=== PATIENT | male | born 1975 | race Caucasian/White ===

== ENCOUNTER 2016-10-02 19:09 | Emergency (ER) | payer MEDICAID ==
[~2016-10-02] VITALS: Ht 170.2 cm; Wt 76.0 kg
[2016-10-02 19:17] VITALS: Ht 170.2 cm; Wt 76.0 kg
[2016-10-02] MEDS ORDERED: SITA1TAB5 PO (21:31)
[2016-10-02] MEDS ORDERED: ASPI-664 PO (21:31)
[2016-10-02] MEDS ORDERED: SOD CHLORIDE 0.9% 500 ML IV STA (21:36)
[2016-10-02 22:08] LABS: ADD SCAN DIFF NO
--- NOTE | 2016-10-02 22:08 | RADRPT ---
PROCEDURE: XR Chest AP portable CLINICAL INDICATION: Hyperglycemia TECHNIQUE: An AP portable radiograph of the chest was submitted. COMPARISON: None. FINDINGS: Support Hardware: None Cardiovascular: The cardiovascular silhouette appears unremarkable. Lung Bae: A 4 mm nodule projects to the right upper lung zone. The lung bae are otherwise carolann ar. Pleural Spaces: No pneumothorax or pleural effusion is identified. Osseous Structures: Mild diffuse degenerative spine changes are noted. Soft Tissues: The soft tissues appear generous. IMPRESSION: 1. A 4 mm nodule projects to the right upper lobe. As this is upper lobe location, a 812-month fol low-up PA chest is recommended if previous chest films going back at least to years cannot be obtain ed. 2. Mild degenerative spine changes. Physician Tracy Date Time Electronically viewed and signed by Physician Tracy on 10/02/2016 22:08 /
[2016-10-02 22:13] LABS: BASOPHILS % 0.6 % (0.0-2.0); EOSINOPHILS # 0.1 10^3/ul (0.0-0.5); EOSINOPHILS % 1.5 % (0.0-7.0); HEMATOCRIT 42.6 % (42.0-52.0); HEMOGLOBIN 15.5 g/dl (14.0-18.0); LYMPHOCYTES # 2.5 10^3/ul (0.8-2.9); MEAN CORPUSCULAR HEMOGLOBIN 30.3 pg (29.0-33.0); MEAN CORPUSCULAR HGB CONC 36.4 g/dl (32.0-37.0); MEAN CORPUSCULAR VOLUME 83.4 fl (82.0-101.0); MEAN PLATELET VOLUME 9.8 fl (7.4-10.4); MONOCYTE # 0.7 10^3/ul (0.3-0.9); MONOCYTES % 10.2 % (0.0-11.0); NEUTROPHIL # 3.5 10^3/ul (1.6-7.5); NEUTROPHILS % 51.4 % (39.0-77.0); PLATELET COUNT 221 10^3/UL (140-415); RED BLOOD COUNT 5.11 10^6/ul (4.70-6.10); RED CELL DISTRIBUTION WIDTH 12.1 % (11.5-14.5); WHITE BLOOD COUNT 6.8 10^3/ul (4.8-10.8)
[2016-10-02 22:22] LABS: ADD UMIC NO; UR ASCORBIC ACID NEGATIVE (NEGATIVE); UR BILIRUBIN (Dip) NEGATIVE (NEGATIVE); UR BLOOD (Dip) NEGATIVE (NEGATIVE); UR CLARITY CLEAR (CLEAR); UR COLOR STRAW (YELLOW); UR GLUCOSE (Dip) 3+ mg/dL (NEGATIVE); UR KETONES (Dip) 2+ mg/dL (NEGATIVE); UR LEUKOCYTE ESTERASE (Dip) NEGATIVE Leu/ul (NEGATIVE); UR NITRITE (Dip) NEGATIVE (NEGATIVE); UR SPECIFIC GRAVITY (Dip) 1.037 (1.003-1.030); UR TOTAL PROTEIN (Dip) NEGATIVE (NEGATIVE); UR UROBILINOGEN (Dip) NEGATIVE (NEGATIVE)
[2016-10-02 22:39] LABS: ALANINE AMINOTRANSFERASE 33 IU/L (13-69); ALBUMIN 4.8 g/dl (3.3-4.9); ALBUMIN/GLOBULIN RATIO 2.08; ALKALINE PHOSPHATASE 95 IU/L (42-121); ANION GAP 15 (8-16); ASPARTATE AMINO TRANSFERASE 19 IU/L (15-46); BILIRUBIN,INDIRECT 0.3 mg/dl (0-1.1); BILIRUBIN,TOTAL 0.3 mg/dl (0.2-1.3); BLOOD UREA NITROGEN 15 mg/dl (7-20); CALCIUM 9.6 mg/dl (8.4-10.2); CARBON DIOXIDE 26 mmol/L (21-31); CHLORIDE 98 mmol/L (97-110); CREATININE 0.87 mg/dl (0.61-1.24); GLUCOSE 361 mg/dl (70-220); POTASSIUM 4.1 mmol/L (3.5-5.1); SODIUM 135 mmol/L (135-144); TOTAL PROTEIN 7.1 g/dl (6.1-8.1)
[2016-10-02 22:50] LABS: TROPONIN-I < 0.012 ng/ml (0.00-0.12)
--- NOTE | 2016-10-03 00:21 | ERD ---
ER Documentation Chief Complaint Date/Time DATE: 10/03/16 TIME: 00:20 Chief Complaint hyperglycdmia, dizziness, blurry vision, [id number] [id number] HPI This a 40-year-old male with known his blood sugars been elevated over the past 4 days. He denies dizziness and blurry vision. No polyuria but no polydipsia polyphagia. No other current complaints. Headache is mild to moderate intensity. Visual acuity as per since return to normal upon arrival to the ER. ROS All systems reviewed and are negative except as per history of present illness. Medications Home Meds Discontinued Reported Medications Aspirin* (Aspirin* EC) 81 Mg Tablet.dr, 81 MG PO DAILY, TAB 10/02/16 Sitagliptin Phos/Metformin HCl (Janumet 50-1,000 mg Tablet) 1 Each Tablet, 1 EACH PO, TAB 10/02/16 Allergies Allergies: Coded Allergies: No Known Allergy (Unverified , 10/02/16) PMhx/Soc History of Surgery: No Anesthesia Reaction: No Hx Neurological Disorder: No Hx Respiratory Disorders: No Hx Cardiac Disorders: No Hx Psychiatric Problems: No Hx Miscellaneous Medical Probl: No Hx Alcohol Use: No Hx Substance Use: No Hx Tobacco Use: No Smoking Status: Never smoker Physical Exam Vitals Vital Signs Date Time Temp Pulse Resp B/P Pulse Ox O2 Delivery O2 Flow Rate FiO2 10/02/16 19:17 97.4 75 20 145/87 99 Physical Exam Const: [] Head: Atraumatic Eyes: Normal Conjunctiva ENT: Normal External Ears, Nose and Mouth. Neck: Full range of motion..~ No meningismus. Resp: Clear to auscultation bilaterally Cardio: Regular rate and rhythm, no murmurs Abd: Soft, non tender, non distended. Normal bowel sounds Skin: No petechiae or rashes Back: No midline or flank tenderness Ext: No cyanosis, or edema Neur: Awake and alert Psych: Normal Mood and Affect Result Diagram: 10/02/16214410/02/162144 Results 24 hrs Laboratory Tests Test 10/02/16 19:16 10/02/16 21:33 10/02/16 21:45 10/02/16 22:01 Bedside Glucose 346mg/dL 355mg/dL White Blood Count 6.810^3/ul Red Blood Count 5.1110^6/ul Hemoglobin 15.5g/dl Hematocrit 42.6% Mean Corpuscular Volume 83.4fl Mean Corpuscular Hemoglobin 30.3pg Mean Corpuscular Hemoglobin Concent 36.4g/dl Red Cell Distribution Width 12.1% Platelet Count 72814^3/UL Mean Platelet Volume 9.8fl Neutrophils % 51.4% Lymphocytes % 36.0% Monocytes % 10.2% Eosinophils % 1.5% Basophils % 0.6% Nucleated Red Blood Cells % 0.0/100WBC Neutrophils # 3.510^3/ul Lymphocytes # 2.510^3/ul Monocytes # 0.710^3/ul Eosinophils # 0.110^3/ul Basophils # 0.010^3/ul Nucleated Red Blood Cells # 0.010^3/ul Sodium Level 135mmol/L Potassium Level 4.1mmol/L Chloride Level 98mmol/L Carbon Dioxide Level 26mmol/L Anion Gap 15 Blood Urea Nitrogen 15mg/dl Creatinine 0.87mg/dl Glucose Level 361mg/dl Lactic Acid Level 1.1mmol/L Calcium Level 9.6mg/dl Total Bilirubin 0.3mg/dl Direct Bilirubin 0.00mg/dl Indirect Bilirubin 0.3mg/dl Aspartate Amino Transf (AST/SGOT) 19IU/L Alanine Aminotransferase (ALT/SGPT) 33IU/L Alkaline Phosphatase 95IU/L Troponin I < 0.012ng/ml Total Protein 7.1g/dl Albumin 4.8g/dl Globulin 2.30g/dl Albumin/Globulin Ratio 2.08 Urine Color STRAW Urine Clarity CLEAR Urine pH 6.0 Urine Specific [place] 1.037 Urine Ketones 2+mg/dL Urine Nitrite NEGATIVEmg/dL Urine Bilirubin NEGATIVEmg/dL Urine Urobilinogen NEGATIVEmg/dL Urine Leukocyte Esterase NEGATIVELeu/ul Urine Hemoglobin NEGATIVEmg/dL Urine Glucose 3+mg/dL Urine Total Protein NEGATIVEmg/dl Test 10/02/16 23:43 Lactic Acid Level 0.8mmol/L Current Medications Medications (Trade) Dose Ordered Sig/Olga Route PRN Reason Start Time Stop Time Status Last Admin Dose Admin Sodium Chloride (NS) 500 ml @ 500 mls/hr Q1H STAT IV 10/02/16 21:36 10/02/16 22:35 DC 10/02/16 21:43 Procedures/MDM EKG: Rate/Rhythm: Normal Sinus Rhythm QRS, ST, T-waves: No changes consistent w/ acute ischemia Impression: No evidence of ischemia or arrhythmia Chest X-ray 1V Interpreted by me: Soft Tissue: No acute abnormalities Bones: No acute abnormalities Mediastinum/Cardiac Silhouette/Lungs: No acute abnormalities Medical decision-makin, hyperglycemia. No evidence DKA. Hydrated here. Feels better. Follow-up with PCP. Return for return of symptoms. Nonfocal neurologically here in the emergency department with serial examinations Departure Diagnosis: Primary Impression: Hyperglycemia Condition: Stable Patient Instructions: Hyperglycemia (High Blood Sugar) KHALIDA MACEDO Oct 03, 2016 00:21
[2016-10-03 00:27] VITALS: BP 138/72; PULSE 62; RESP 20; TEMP 97.4
== END 2016-10-03 00:36 | disposition home or self-care (01) ==
LOC: E/R 19:09
DX: R73.9 Hyperglycemia, unspecified (principal); R42 Dizziness and giddiness; Z79.82 Long term (current) use of aspirin
CPT/HCPCS: 71010; 80053; 81003; 82962; 83605; 84484; 85025; 93005; J7040; 36415

== ENCOUNTER 2016-12-11 08:31 | Emergency (ER) | payer SELFPAY ==
[~2016-12-11] VITALS: Ht 157.5 cm; Wt 73.0 kg
[2016-12-11 08:34] VITALS: Ht 157.5 cm; Wt 73.0 kg
[2016-12-11 09:24] LABS: ADD UMIC YES; UR ASCORBIC ACID NEGATIVE (NEGATIVE); UR BILIRUBIN (Dip) NEGATIVE (NEGATIVE); UR BLOOD (Dip) NEGATIVE (NEGATIVE); UR CLARITY CLEAR (CLEAR); UR COLOR YELLOW (YELLOW); UR GLUCOSE (Dip) 2+ mg/dL (NEGATIVE); UR KETONES (Dip) NEGATIVE (NEGATIVE); UR LEUKOCYTE ESTERASE (Dip) NEGATIVE Leu/ul (NEGATIVE); UR MUCUS FEW /HPF (NONE SEEN); UR NITRITE (Dip) NEGATIVE (NEGATIVE); UR RBC 3 /HPF (0-5); UR SPECIFIC GRAVITY (Dip) 1.028 (1.003-1.030); UR TOTAL PROTEIN (Dip) 1+ mg/dl (NEGATIVE); UR UROBILINOGEN (Dip) 1+ mg/dL (NEGATIVE)
[2016-12-11] MEDS ORDERED: PHEN-537 PO (09:52)
[2016-12-11] MEDS ORDERED: AZITHROMYCIN 250 MG TAB PO ONE (10:00)
[2016-12-11] MEDS ORDERED: CEFTRIAXONE 250 MG INJ IM ONE (10:00)
--- NOTE | 2016-12-11 10:19 | ERD ---
ER Documentation Chief Complaint Date/Time DATE: 12/11/16 TIME: 10:11 Chief Complaint dysuria x 1 week HPI This is a 41-year-old male presents to the ER with painful urination for the past week. Patient denies any urinary frequency. He denies any abdominal pain , flank pain, hematuria, nausea, vomiting, diarrhea. Patient denies any penis pain, penile discharge or any testicular pain. He denies any anal pain. He denies any rectal bleeding. Patient states he has had tactile fevers at night, however denies chills. Patient is currently sexually active in a monogamous relationship with his . ROS 12 point review of systems was done, all negative except per HPI. Medications Home Meds Active Scripts Phenazopyridine Hcl* (Pyridium*) 100 Mg Tab, 100 MG PO TID Y for URINARY PAIN, # 9 TAB Prov:JIGNA GOLDBERG Christiano 12/11/16 Allergies Allergies: Coded Allergies: No Known Allergy (Unverified , 10/02/16) PMhx/Soc History of Surgery: No Anesthesia Reaction: No Hx Neurological Disorder: No Hx Respiratory Disorders: No Hx Cardiac Disorders: No Hx Psychiatric Problems: No Hx Miscellaneous Medical Probl: No Hx Alcohol Use: No Hx Substance Use: No Hx Tobacco Use: No Physical Exam Vitals Vital Signs Date Time Temp Pulse Resp B/P Pulse Ox O2 Delivery O2 Flow Rate FiO2 12/11/16 08:34 99.6 96 18 115/72 99 Physical Exam GENERAL: The patient is well developed and appropriate for usual state of health , in no apparent distress. HEENT: Atraumatic. NECK: C-spine is soft and supple. There is no cervical lymphadenopathy. CHEST: Clear to auscultation bilaterally. There are no rales, wheezes or rhonchi. HEART: Regular rate and rhythm. No murmurs, clicks, rubs or gallops. ABDOMEN: Soft, nontender and nondistended. Good bowel sounds. No rebound or guarding. No gross peritonitis. No gross organomegaly or masses. No Mccall sign or McBurney point tenderness. BACK: No midline or flank tenderness. NEURO: Alert and oriented. SKIN: There is no apparent rash or petechia. The skin is warm and dry. Results 24 hrs Laboratory Tests Test 12/11/16 08:50 Urine Color YELLOW Urine Clarity CLEAR Urine pH 5.0 Urine Specific [place] 1.028 Urine Ketones NEGATIVEmg/dL Urine Nitrite NEGATIVEmg/dL Urine Bilirubin NEGATIVEmg/dL Urine Urobilinogen 1+mg/dL Urine Leukocyte Esterase NEGATIVELeu/ul Urine Microscopic RBC 3/HPF Urine Microscopic WBC 5/HPF Urine Mucus FEW/HPF Urine Hemoglobin NEGATIVEmg/dL Urine Glucose 2+mg/dL Urine Total Protein 1+mg/dl Current Medications Medications (Trade) Dose Ordered Sig/Olga Route PRN Reason Start Time Stop Time Status Last Admin Dose Admin Ceftriaxone Sodium (Rocephin) 250 mg ONCE ONCE IM 12/11/16 10:00 12/11/16 10:01 DC 12/11/16 09:49 Azithromycin (Zithromax) 1,000 mg ONCE ONCE PO 12/11/16 10:00 12/11/16 10:01 DC 12/11/16 09:49 Procedures/MDM This is a 41-year-old male presents to the ER with dysuria for the last week. Patient does not have a urinary tract infection. Patient is afebrile and well- appearing he does not c.o abdominal pain, testicular pain or rectal pain. Suspicion for acute bacterial prostatitis is low, patient afebrile and extremely well-appearing. Suspicion for pyelonephritis is low as patient does not have any CVA tenderness. I discussed the possibility of this being related to an STI, eventhough my suspicion is low, patient did want to be treated prophylactically. He was given Rocephin and Azithromycin in the ER without any complications. He will be sent home with Pyridium for dysuria and urine was sent for STI testing and urine culture. Patient was told to follow-up with his primary care doctor within 1-2 days return to ER sooner if symptoms. Departure Diagnosis: Primary Impression: Dysuria Condition: Stable Patient Instructions: Dysuria Additional Instructions: Llame al doctor MAANA y jaleesa eran QUINTIN PARA DENTRO DE 1-2 ANDERSON.Dgale a la secretaria que nosotros le instruimos hacer esta quintin.Avise o llame si howard condicin se empeora antes de la quintin. Regresa aqui si peor o no mejor. JIGNA GOLDBERG Dec 11, 2016 10:19
== END 2016-12-11 10:05 | disposition home or self-care (01) ==
LOC: FTE 08:31
DX: R30.0 Dysuria (principal)
CPT/HCPCS: 81001; 87086; 87591; 96372; 99284; J0696

== ENCOUNTER 2017-01-04 09:58 | Emergency (ER) | payer SELFPAY ==
[~2017-01-04] VITALS: Ht 162.6 cm; Wt 80.5 kg
[~2017-01-04 09:58] MED LIST: PHEN-537 PO
[2017-01-04 10:04] VITALS: Ht 162.6 cm; Wt 80.5 kg
[2017-01-04] MEDS ORDERED: morphine 4 MG/ML VIAL IV STA (10:38)
[2017-01-04] MEDS ORDERED: ONDANSETRON 4 MG INJ IV STA (10:38)
--- NOTE | 2017-01-04 10:49 | ERD ---
ER Documentation Chief Complaint Date/Time DATE: 01/04/17 TIME: 10:46 Chief Complaint Complains of abdominal pain x 4 days HPI This is a 41-year-old male who presents the emergency department today complaining of abdominal pain for the past 2 days. States that 2 days prior to that he had been having back pain. States he has not taken any medication for the pain. Denies any dysuria, hematuria,fevers or chills, vomiting. Denies any loss of bowel or bladder control ROS All systems reviewed and are negative except as per history of present illness. Medications Home Meds Active Scripts Acetaminophen* (Tylophen*) 500 Mg Capsule, 1 CAP PO Q6H Y for PAIN AND OR ELEVATED TEMP, #30 CAP Prov:MOI MONIQUE PA-C 01/04/17 Naproxen* (Naprosyn*) 500 Mg Tablet, 500 MG PO BID Y for PAIN AND/OR INFLAMMATION, #30 TAB Prov:MOI MONIQUE PA-C 01/04/17 Docusate Sodium* (Colace*) 100 Mg Capsule, 100 MG PO TID, #30 CAP Prov:MOI MONIQUE PA-C 01/04/17 Polyethylene Glycol* (Miralax*) 17 Gm Powd.pack, 17 GM PO DAILY, #14 Prov:MOI MONIQUE PA-C 01/04/17 Phenazopyridine Hcl* (Pyridium*) 100 Mg Tab, 100 MG PO TID Y for URINARY PAIN, # 9 TAB Prov:JIGNA GOLDBERG 12/11/16 Allergies Allergies: Coded Allergies: No Known Allergy (Unverified , 10/02/16) PMhx/Soc History of Surgery: No Anesthesia Reaction: No Hx Neurological Disorder: No Hx Respiratory Disorders: No Hx Cardiac Disorders: No Hx Psychiatric Problems: No Hx Miscellaneous Medical Probl: No Hx Alcohol Use: No Hx Substance Use: No Hx Tobacco Use: No Physical Exam Vitals Vital Signs Date Time Temp Pulse Resp B/P Pulse Ox O2 Delivery O2 Flow Rate FiO2 01/04/17 10:04 97.0 76 20 136/74 99 Physical Exam Const: NAD Head: Atraumatic Eyes: Normal Conjunctiva ENT: Normal External Ears, Nose and Mouth. Neck: Full range of motion..~ No meningismus. Resp: Clear to auscultation bilaterally Cardio: Regular rate and rhythm, no murmurs Abd: Soft, left lower quadrant pain non distended. Normal bowel sounds no tenderness at McBurney's. No right upper quadrant pain. Skin: No petechiae or rashes Back: Lumbar spine no midline tenderness. Mild bilateral paraspinal tenderness. No CVA tenderness. Ext: No cyanosis, or edema Neur: Awake and alert Psych: Normal Mood and Affect Result Diagram: 01/04/17 1050 01/04/17 1050 Results 24 hrs Laboratory Tests Test 01/04/17 10:45 01/04/17 10:50 Urine Color STRAW Urine Clarity CLEAR Urine pH 5.0 Urine Specific [place] 1.009 Urine Ketones NEGATIVEmg/dL Urine Nitrite NEGATIVEmg/dL Urine Bilirubin NEGATIVEmg/dL Urine Urobilinogen NEGATIVEmg/dL Urine Leukocyte Esterase NEGATIVELeu/ul Urine Hemoglobin NEGATIVEmg/dL Urine Glucose 3+mg/dL Urine Total Protein NEGATIVEmg/dl White Blood Count 8.710^3/ul Red Blood Count 5.2710^6/ul Hemoglobin 15.1g/dl Hematocrit 44.9% Mean Corpuscular Volume 85.2fl Mean Corpuscular Hemoglobin 28.7pg Mean Corpuscular Hemoglobin Concent 33.6g/dl Red Cell Distribution Width 12.6% Platelet Count 47466^3/UL Mean Platelet Volume 8.9fl Neutrophils % 57.1% Lymphocytes % 30.4% Monocytes % 9.8% Eosinophils % 2.0% Basophils % 0.5% Nucleated Red Blood Cells % 0.0/100WBC Neutrophils # 5.010^3/ul Lymphocytes # 2.610^3/ul Monocytes # 0.910^3/ul Eosinophils # 0.210^3/ul Basophils # 0.010^3/ul Nucleated Red Blood Cells # 0.010^3/ul Sodium Level 138mmol/L Potassium Level 4.2mmol/L Chloride Level 104mmol/L Carbon Dioxide Level 21mmol/L Anion Gap 17 Blood Urea Nitrogen 12mg/dl Creatinine 0.86mg/dl Glucose Level 221mg/dl Calcium Level 9.6mg/dl Total Bilirubin 0.4mg/dl Direct Bilirubin 0.00mg/dl Indirect Bilirubin 0.4mg/dl Aspartate Amino Transf (AST/SGOT) 24IU/L Alanine Aminotransferase (ALT/SGPT) 41IU/L Alkaline Phosphatase 90IU/L Total Protein 7.9g/dl Albumin 4.4g/dl Globulin 3.50g/dl Albumin/Globulin Ratio 1.25 Lipase 208U/L Current Medications Medications (Trade) Dose Ordered Sig/Olga Route PRN Reason Start Time Stop Time Status Last Admin Dose Admin Morphine Sulfate (morphine) 4 mg ONCE STAT IV 01/04/17 10:38 01/04/17 10:39 DC 01/04/17 10:52 Ondansetron HCl (Zofran Inj) 4 mg ONCE STAT IV 01/04/17 10:38 01/04/17 10:39 DC 01/04/17 10:52 DIAGNOSTIC IMAGING REPORT Patient: TAMAR SOTELO : 1975 Age: 41 Sex: M MR #: [id number] DOS: 01/04/17 1038 Ordering MD: MOI MONIQUE PA-C Location: [facility] Room/Bed: PROCEDURE: CT Abdomen and Pelvis without contrast CLINICAL INDICATION: Abdominal pain TECHNIQUE: Transaxial images were obtained through the abdomen and pelvis on a multi-slice scanner without the intravenous contrast administration. No oral contrast had previously been given. Sagittal and coronal re-formations were subsequently reconstructed. One or more of the following dose reduction techniques were used: - Automated exposure control. - Adjustment of the mA and/or kV according to patient size. - Use of iterative reconstruction technique. Radiation dose: CTDIvol = 11.27 mGy; DLP = 697.51 mGy-cm. COMPARISON: No prior studies are available for comparison. FINDINGS: Lung bases: A 4 mm calcified granuloma is seen in the left lower lobe. Liver: The liver is mildly enlarged. There is little a lobulation to the contour of the inferior tip of the right lobe with no discrete mass identified within the limitations of lack of intravenous contrast. Gallbladder: The wall is not thickened. No radiopaque stones are identified. Bile ducts: The intra and extrahepatic bile ducts are normal in caliber. Pancreas: Appears normal with no mass or inflammation evident. Spleen: The spleen appears unremarkable. Too small accessory spleens are seen ventrally. Adrenals: Normal with no mass identified. Kidneys, ureters and bladder: The kidneys are normal in size and there is no mass, pathological calcification, or hydronephrosis evident. There is no perinephric stranding. The ureters are normal in caliber and no ureteroliths are identified. The bladder appears unremarkable. Reproductive organs: Unremarkable. Stomach and bowel: The stomach and bowel appear unremarkable. There is substantial stool seen within the colon without evidence of bowel obstruction or inflammation. Appendix: A normal-appearing vermiform appendix is evident. Peritoneum: No free intraperitoneal fluid or air is identified. There is a small fat containing left inguinal hernia. Aorta: Normal in caliber with no aneurysmal dilatation. IVC: Unremarkable. Lymph nodes: A few small calcified mesenteric nodes are seen within the right lower quadrant with the largest measuring approximately 6 mm in short diameter. Osseous structures: The osseous elements appear intact. IMPRESSION: 1. Substantial stool is seen to the colon but there is no evidence of bowel obstruction or inflammation with a normal-appearing vermiform appendix. 2. No evidence of urinary outflow obstruction or ureterolithiasis. The bladder appears unremarkable. 3. There is no free intraperitoneal fluid or air. 4. Lobulated contour to the inferior tip of the right lobe of the liver. 5. Small fat containing left inguinal hernia. 6. Small calcified mesenteric nodes are seen within the right lower quadrant. 7. A 4 mm calcified granuloma is seen in the left lower lobe. Physician Tracy Date Time Electronically viewed and signed by Physician Tracy on 01/04/2017 12:02 RH/ CC: MOI MONIQUE PA-C Procedures/[facility] This is a 41-year-old male who presents the emergency department today complaining of abdominal pain for the past 2 days and back pain prior to that. Patient did indicate he had a history of kidney stones 4 years ago but he is unsure if this feels the same. Patient was also seen here on December 11, 2016 for complaints of dysuria. His UA was negative at that time. Patient was treated prophylactically for gonorrhea and chlamydia however review of patient' s medical records shows that none was detected in his urine serology. His urine culture was negative as well. Today given patient's new complaints I did obtain laboratory workup as well as imaging Laboratory workup shows no elevated white blood cell count. He is not anemic. Platelets are within normal limits. Electrolytes are within normal limits. Glucose is very mildly elevated at 221. Liver enzymes are within normal limits. Lipase is within normal limits. UA is negative for infection. There is 3+ glucose with negative ketones. CT abdomen pelvis noncontrast shows substantial stool seen in the colon but no evidence of bowel obstruction or inflammation with a normal-appearing appendix. There is no evidence of urinary outflow obstruction or ureterolithiasis. Bladder is unremarkable. There is no free fluid or free air. There is a small fat-containing left inguinal hernia. There is a small calcified mesenteric node seen within the right lower quadrant. There is a 4 mm calcified granuloma seen within the left lower lobe. Patient symptoms at this time is consistent with a abdominal pain of the left lower quadrant and possibly related to constipation. At this time there is no evidence to suggest acute surgical abdomen. Patient was also complaining of back pain and he has no midline tenderness no loss of bowel or bladder control. He did not feel that he requires x-rays at this time. Low suspicion for acute fracture dislocation. Low suspicion for cauda equina or abscess. Patient was given Zofran and morphine here in the emergency department and pain improved. Patient does take Janumet he was instructed to continue taking his diabetes medications as prescribed. There is no indication for DKA at this time. Patient will be given a prescription for Naprosyn, Tylenol, MiraLAX and Colace At this time the patient is stable for discharge and outpatient management. Patient should follow up with their PCP in the next 1-2 days. They may return to the emergency department sooner for any persistent or worsening of symptoms. Patient understood and agreed with the plan. Departure Diagnosis: Primary Impression: Abdominal pain Abdominal location: left lower quadrant Qualified Code: R10.32 - Left lower quadrant pain Condition: Fair MOI MONIQUE PA-C Jan 04, 2017 10:49
[2017-01-04 11:14] LABS: BASOPHILS % 0.5 % (0.0-2.0); EOSINOPHILS # 0.2 10^3/ul (0.0-0.5); HEMATOCRIT 44.9 % (42.0-52.0); HEMOGLOBIN 15.1 g/dl (14.0-18.0); LYMPHOCYTES # 2.6 10^3/ul (0.8-2.9); LYMPHOCYTES % 30.4 % (15.0-51.0); MEAN CORPUSCULAR HEMOGLOBIN 28.7 pg (29.0-33.0); MEAN CORPUSCULAR HGB CONC 33.6 g/dl (32.0-37.0); MEAN CORPUSCULAR VOLUME 85.2 fl (82.0-101.0); MEAN PLATELET VOLUME 8.9 fl (7.4-10.4); MONOCYTE # 0.9 10^3/ul (0.3-0.9); MONOCYTES % 9.8 % (0.0-11.0); NEUTROPHILS % 57.1 % (39.0-77.0); PLATELET COUNT 194 10^3/UL (140-415); RED BLOOD COUNT 5.27 10^6/ul (4.70-6.10); RED CELL DISTRIBUTION WIDTH 12.6 % (11.5-14.5); WHITE BLOOD COUNT 8.7 10^3/ul (4.8-10.8)
[2017-01-04 11:17] LABS: ADD UMIC NO; UR ASCORBIC ACID NEGATIVE (NEGATIVE); UR BILIRUBIN (Dip) NEGATIVE (NEGATIVE); UR BLOOD (Dip) NEGATIVE (NEGATIVE); UR CLARITY CLEAR (CLEAR); UR COLOR STRAW (YELLOW); UR GLUCOSE (Dip) 3+ mg/dL (NEGATIVE); UR KETONES (Dip) NEGATIVE (NEGATIVE); UR LEUKOCYTE ESTERASE (Dip) NEGATIVE Leu/ul (NEGATIVE); UR NITRITE (Dip) NEGATIVE (NEGATIVE); UR SPECIFIC GRAVITY (Dip) 1.009 (1.003-1.030); UR TOTAL PROTEIN (Dip) NEGATIVE (NEGATIVE); UR UROBILINOGEN (Dip) NEGATIVE (NEGATIVE)
[2017-01-04 11:35] LABS: ALBUMIN 4.4 g/dl (3.3-4.9); ALBUMIN/GLOBULIN RATIO 1.25; BILIRUBIN,INDIRECT 0.4 mg/dl (0-1.1); BILIRUBIN,TOTAL 0.4 mg/dl (0.2-1.3); CALCIUM 9.6 mg/dl (8.4-10.2); CREATININE 0.86 mg/dl (0.61-1.24); POTASSIUM 4.2 mmol/L (3.5-5.1); TOTAL PROTEIN 7.9 g/dl (6.1-8.1)
--- NOTE | 2017-01-04 12:02 | RADRPT ---
PROCEDURE: CT Abdomen and Pelvis without contrast CLINICAL INDICATION: Abdominal pain TECHNIQUE: Transaxial images were obtained through the abdomen and pelvis on a multi-slice scanner without the intravenous contrast administration. No oral contrast had previously been given. Sagit kat and coronal re-formations were subsequently reconstructed. One or more of the following dose reduction techniques were used: - Automated exposure control. - Adjustment of the mA and/or kV according to patient size. - Use of iterative reconstruction technique. Radiation dose: CTDIvol = 11.27 mGy; DLP = 697.51 mGy-cm. COMPARISON: No prior studies are available for comparison. FINDINGS: Lung bases: A 4 mm calcified granuloma is seen in the left lower lobe. Liver: The liver is mildly enlarged. There is little a lobulation to the contour of the inferior tip of the right lobe with no discrete mass identified within the limitations of lack of intravenous co ntrast. Gallbladder: The wall is not thickened. No radiopaque stones are identified. Bile ducts: The intra and extrahepatic bile ducts are normal in caliber. Pancreas: Appears normal with no mass or inflammation evident. Spleen: The spleen appears unremarkable. Too small accessory spleens are seen ventrally. Adrenals: Normal with no mass identified. Kidneys, ureters and bladder: The kidneys are normal in size and there is no mass, pathological calc ification, or hydronephrosis evident. There is no perinephric stranding. The ureters are normal in c aliber and no ureteroliths are identified. The bladder appears unremarkable. Reproductive organs: Unremarkable. Stomach and bowel: The stomach and bowel appear unremarkable. There is substantial stool seen within the colon without evidence of bowel obstruction or inflammation. Appendix: A normal-appearing vermiform appendix is evident. Peritoneum: No free intraperitoneal fluid or air is identified. There is a small fat containing left inguinal hernia. Aorta: Normal in caliber with no aneurysmal dilatation. IVC: Unremarkable. Lymph nodes: A few small calcified mesenteric nodes are seen within the right lower quadrant with th e largest measuring approximately 6 mm in short diameter. Osseous structures: The osseous elements appear intact. IMPRESSION: 1. Substantial stool is seen to the colon but there is no evidence of bowel obstruction or inflamma tion with a normal-appearing vermiform appendix. 2. No evidence of urinary outflow obstruction or ureterolithiasis. The bladder appears unremarkable . 3. There is no free intraperitoneal fluid or air. 4. Lobulated contour to the inferior tip of the right lobe of the liver. 5. Small fat containing left inguinal hernia. 6. Small calcified mesenteric nodes are seen within the right lower quadrant. 7. A 4 mm calcified granuloma is seen in the left lower lobe. Physician Tracy Date Time Electronically viewed and signed by Physician Tracy on 01/04/2017 12:02 /
[2017-01-04] MEDS ORDERED: NAPR-260 PO (12:29)
[2017-01-04] MEDS ORDERED: POLY17PO6 PO (12:29)
[2017-01-04] MEDS ORDERED: DOCU-144 PO (12:29)
[2017-01-04] MEDS ORDERED: ACET500C5 PO (12:30)
== END 2017-01-04 12:39 | disposition home or self-care (01) ==
LOC: FTE 09:58
DX: R10.32 Left lower quadrant pain (principal)
CPT/HCPCS: 36415; 74176; 80053; 81003; 83690; 85025; 96374; 96375; 99285; J2270; J2405